=== PATIENT | male | born 1980 | race Caucasian/White ===

== ENCOUNTER 2016-12-06 21:04 | Emergency (ER) | payer SELFPAY ==
[~2016-12-06] VITALS: Ht 170.2 cm; Wt 68.0 kg
[2016-12-06 21:05] VITALS: BP 111/82; PULSE 103; PULSE 98; RESP 16; TEMP 98.4; O2SAT 100
[2016-12-06] MEDS ORDERED: SODIUM CHLOR 0.9% 1000 ML INJ 1,000 ML IV ONE (21:15)
--- NOTE | 2016-12-06 21:33 | PD ---
HPI Chief Complaint: OD/ Ingestion Time Seen by Provider: 21:09 Travel History International Travel<30 days: No Contact w/Intl Traveler<30days: No Traveled to known affect area: No History of Present Illness HPI The patient is a 36-year-old male who presents to the emergency department via EMS after he was found down, after possible heroin ingestion. The patient does state he uses heroin intravenously, used heroin earlier today, but does not know what time or what location he used heroin. EMS apparently gave the patient Narcan 0 4. milligrams which reversed the patient's heroin. Upon arrival the patient is awake, somewhat alert, but is slightly confused about when he used heroin and a wet location. He does have a history of IVDA. The patient denies any headache, chest pain, short of breath, nausea, vomiting, or abdominal pain. He denies any alcohol ingestion tonight. PFSH Past Medical History Arthritis: No Asthma: No Autoimmune Disease: No Blood Disorders: No Anxiety: Yes Depression: No Heart Rhythm Problems: No Cancer: No Cardiovascular Problems: No High Cholesterol: No Chemotherapy: No Chest Pain: No Congestive Heart Failure: No COPD: No Cerebrovascular Accident: No Diabetes: No Diminished Hearing: No Endocrine: No Gastrointestinal Disorders: Yes (CHROHN'S) GERD: Yes Glaucoma: No Genitourinary: No Headaches: No Hepatitis: No Hiatal Hernia: No Hypertension: No Immune Disorder: No Kidney Stones: No Musculoskeletal: Yes Neurologic: Yes Psychiatric: Yes Reproductive: No Respiratory: Yes Immunizations Current: No Migraines: Yes Myocardial Infarction: No Radiation Therapy: No Renal Failure: No Seizures: No Sickle Cell Disease: No Sleep Apnea: No Thyroid Disease: No Ulcer: No Past Surgical History Abdominal Surgery: Yes (APPY) AICD: No Appendectomy: Yes Arteriovenous Shunt: No Cardiac Surgery: No Cholecystectomy: No Ear Surgery: No Endocrine Surgery: No Genitourinary Surgery: No Gynecologic Surgery: No Insulin Pump: No Joint Replacement: No Oral Surgery: No Pacemaker: No Thoracic Surgery: No Other Surgery: Yes Social History Alcohol Use: No Tobacco Use: Yes (1 ppd) Substance Use: Yes (marijuana) Allergies-Medications (Allergen,Severity, Reaction): Coded Allergies: No Known Allergies (Verified , 04/26/15) Reported Meds & Prescriptions Reported Meds & Active Scripts Active No Active Prescriptions or Reported Medications Review of Systems Except as stated in HPI: all other systems reviewed are Neg HENT: No: Lightheadedness Cardiovascular: No: Chest Pain or Discomfort Respiratory: No: Shortness of Breath Gastrointestinal: No: Nausea, Vomiting, Abdominal Pain Musculoskeletal: No: Weakness Neurologic: Positive: Change in Mentation (altered mental status improved with IV Narcan) Physical Exam Narrative GENERAL: Awake, alert, 36-year-old male who appears older than his stated age and is in no acute respiratory distress. SKIN: Warm and dry. HEAD: Atraumatic. Normocephalic. EYES: No injection or drainage. ENT: No nasal bleeding or discharge. Mucous membranes pink and moist. NECK: Trachea midline. No JVD. CARDIOVASCULAR: Regular rate and rhythm. No murmur appreciated. RESPIRATORY: No accessory muscle use. Clear to auscultation. Breath sounds equal bilaterally. GASTROINTESTINAL: Abdomen soft, non-tender, nondistended. No rebound tenderness. MUSCULOSKELETAL: No obvious deformities. No clubbing. No cyanosis. No edema. NEUROLOGICAL: Awake and alert. No obvious cranial nerve deficits. Motor grossly within normal limits. Normal speech. Oriented to person, place, and year. PSYCHIATRIC: Appropriate mood and affect; insight and judgment normal. Data Data Orders Iv Access Insert/Monitor (12/06/16 21:09) Ecg Monitoring (12/06/16 21:09) Oximetry (12/06/16 21:09) Oxygen Administration (12/06/16 21:09) Sodium Chlor 0.9% 1000 Ml Inj (Ns 1000 M (12/06/16 21:15) MDM Medical Decision Making Medical Screen Exam Complete: Yes Emergency Medical Condition: Yes Medical Record Reviewed: Yes Differential Diagnosis Differential diagnoses includes opiate overdose, clonidine overdose, polysubstance abuse, alcohol intoxication, metabolic encephalopathy. Narrative Course Upon arrival the patient was awake and alert, and IV Narcan had reversed the apparent heroin overdose. Patient was placed on cardiac telemetry monitoring and continuous pulse oximetry monitoring. The patient's oxygen saturation on room air was 100%, heart rate was in the 90s. Patient was administered IV fluids and was advised he would need to be monitored for 4 hours, if there is no rebound symptoms/apnea from the heroin, the patient will be discharged at 1 AM. Diagnosis Primary Impression: Heroin overdose Qualified Code: T40.1X1A - Heroin overdose, accidental or unintentional, initial encounter Patient Instructions: General Instructions Additional Instructions: Stop using IV drugs. Follow-up with her primary physician. Return if symptoms worsen or progress. Med/Other Pt SpecificInfo: No Change to Meds Scripts No Active Prescriptions or Reported Meds Disposition: 01 DISCHARGE HOME Condition: Stable Howard Lindsey MD Dec 06, 2016 21:33
[2016-12-07 00:44] VITALS: BP 117/56; PULSE 80; RESP 16; O2SAT 100
== END 2016-12-07 01:32 | disposition home or self-care (01) ==
LOC: NEPE 21:04
DX: T40.1X1A Poisoning by heroin, accidental (unintentional), initial encounter (principal); K50.90 Crohn's disease, unspecified, without complications; F17.210 Nicotine dependence, cigarettes, uncomplicated
CPT/HCPCS: 96360; 99284; J7030